=== PATIENT | female | born 1965 | race Caucasian/White ===

== ENCOUNTER → 2017-02-23 | Outpatient (CLI) | payer BC ==
[~2017-02-23] MED LIST: AMOX875T PO; BCPILLS PO; IUD'IUD
== END | disposition home or self-care (01) ==
LOC: C.PAPS 14:49
PROVIDERS: ATTEND Obstetrics & Gynecology
DX: Z01.419 Encounter for gynecological examination (general) (routine) without abnormal findings (principal)

== ENCOUNTER → 2017-04-12 | Outpatient (CLI) | payer BC ==
--- NOTE | 2017-04-12 14:45 | MAMMOGRAPHY REPORT ---
BILATERAL DIGITAL DIAGNOSTIC MAMMOGRAM TOMOSYNTHESIS WITH CAD AND TARGETED RIGHT ULTRASOUND: 04/12/20 CLINICAL HISTORY: 52-year-old woman with a history of prior benign right breast biopsy presents for follow-up of bilateral asymmetries. TECHNIQUE: Bilateral CC and MLO 2-D digital and tomosynthesis images were obtained. Current study was also evaluated with a Computer Aided Detection (CAD) system. COMPARISON: Comparison is made to exams dated: 10/12/2016 ultrasound, 10/12/2016 mammogram, 016 mammogram, 09/24/2015 mammogram, 08/21/2014 mammogram, and 01/30/2014 mammogram - [facility]. BREAST COMPOSITION: The tissue of both breasts is heterogeneously dense, which may obscure small ma sses. FINDINGS: There are stable asymmetries in the superior posterior right breast on the MLO view, and in the medial, middle one third of the left breast on the CC view. Other fluctuating nodularity ammy aterally. There is no evidence of a suspicious spiculated or irregular mass, focal area of architec tural distortion or suspicious clustered microcalcification. There is somewhat increased nodularity in the medial right breast on the CC view, for which additional evaluation with ultrasound was perf ormed. Targeted ultrasound was performed in the medial right breast. There are scattered benign anechoic c ysts and probable cyst clusters and focal areas of fibrocystic change. In particular, in the right 2:00 breast, 2 cm from the nipple, there is a 4.6 x 3.6 x 5.9 mm hypoechoic solid versus cystic mass with probable associated biopsy marker. This appears similar to a prior ultrasound at which time t his lesion was labeled right 1:00 breast, 2 cm from the nipple, and measured 5.3 x 2.7 x 5.9 mm. In the 1:00 periareolar right breast, there is another hypoechoic probable cyst measuring 4.1 x 3.4 x 3.9 mm. A lobulated anechoic benign simple cyst is identified in the 11:00 periareolar right breast measuring 8.6 x 3.8 x 6.2 mm. A probable cyst cluster in the 10:00 right breast, 2 cm from the nip ple measures 7.4 x 4.2 x 12.4 mm. Another probable cyst cluster in the 3:00 right breast, 1 cm from the nipple measures 5.3 x 2.7 x 6.8 mm. A larger probable cyst cluster in the 3:00 periareolar rig ht breast measures 10.1 x 3.2 x 6.2 mm. Other scattered probable cysts and cyst clusters are seen t hroughout their lower inner quadrant of the right breast. Overall, these findings are most compatib le with benign fibrocystic changes. IMPRESSION: ACR BI-RADS CATEGORY 2: BENIGN, TARGETED ULTRASOUND ACR BI-RADS CATEGORY 2: BENIGN There is fluctuating nodularity in the breasts, with numerous cysts and cyst clusters seen within th e right breast on ultrasound. These findings are most compatible with benign fibrocystic changes. There is no mammographic or targeted sonographic evidence of malignancy. Return to annual mammogram screening schedule is recommended. The patient has been verbally notified of the results. Approximately 10% of breast cancers are not detected with mammography. A negative mammographic repor t should not delay biopsy if a clinically suggestive mass is present. Fatou Velez M.D. ay/:04/12/2017 12:35:23 [employer]: Lorena CONTRERAS(Jorge Alberto)(M), [facility] letter sent: Normal 1/2 BI-RADS Code: ACR BI-RADS Category 2: Benign Ultrasound BI-RADS: ACR BI-RADS Category 2: Benign
== END | disposition home or self-care (01) ==
LOC: C.MAMM 10:46
PROVIDERS: ATTEND Obstetrics & Gynecology
DX: N64.89 Other specified disorders of breast (principal)

== ENCOUNTER 2017-08-20 19:58 | Emergency (ER) | payer BC ==
[~2017-08-20] VITALS: Ht 162.6 cm; Wt 65.5 kg
[~2017-08-20 19:58] MED LIST changes: -AMOX875T PO; -BCPILLS PO
[2017-08-20 20:01] VITALS: TEMP 37; Ht 162.6 cm; Wt 65.5 kg
[2017-08-20] MEDS ORDERED: BCPILLS PO (20:11)
[2017-08-20] MEDS ORDERED: LIDOCAINE/EPINEPHRINE 1% 20 ML VIAL INFIL ONE (20:15)
[2017-08-20] MEDS ORDERED: AMOXICIL/CLAVU 875MG HOME PACK PO ONE (20:15)
[2017-08-20] MEDS ORDERED: AMOX875T PO (20:53)
--- NOTE | 2017-08-20 20:55 | EMERGENCY ROOM VISIT NOTE ---
ED Visit Note First contact with patient: 20:04 CHIEF COMPLAINT: Dog bites HISTORY OF PRESENT ILLNESS: This 52-year-old female patient presents to the emergency department, ambulatory, approximally 20 minutes after receiving multiple dog bites on bilateral arms. The patient states someone was knocking at their door, and their dog was jumping at the door. She was trying to get the dog down and away from the door, when the dog began biting her. The patient states she has received multiple superficial to moderately deep bite wounds on the bilateral arms and wrist. The worst wounds are on the right wrist. The bleeding has stopped. Denies weakness or numbness of the hand or fingers. The patient rates the pain as throbbing and 6/10. The patient denies any other injuries. The patient's Tetanus shot is up to date. The dog's vaccinations, including rabies, are all up-to-date. REVIEW OF SYSTEMS: A 6 system review of systems was completed with positives and pertinent negatives listed in the HPI. ALLERGIES: Sulfa MEDICATIONS: Oral control PMH: None SOCIAL HISTORY: The patient lives locally with family. She denies drug, tobacco use. The patient admits to occasional alcohol use. PHYSICAL EXAM: Vital Signs: Reviewed Nurse's notes, vital signs stable. GENERAL : This is a 52-year-old female, in no acute distress, well-developed, well- nourished. SKIN: There are several very superficial lacerations on the right and left forearms. These lacerations range in length from 0.5 cm to approximately 3 cm. There are 2 lacerations into the subcutaneous tissue. These are on the right hand and wrist. There is a laceration on the anterior wrist which is approximately 1 cm in length, and a laceration on the posterior hand, just proximal to the thumb which is also approximately 1 cm in length. The edges of the deeper lacerations do gape apart with traction. There is no foreign material in the wound and it looks clean. There is very minimal bleeding. No deep structures such as tendons, bones, or significant blood vessels are seen in the base of the wound. Normal strength and movement of the fingers and wrist. Capillary refill less than 2 seconds. Normal sensation to light and sharp touch. EMERGENCY DEPARTMENT COURSE: I examined the patient. Verbal consent was obtained to perform the procedure. Using sterile technique the wound was cleansed with Betadine. The area was sterilely draped. 1 ml of 1% buffered lidocaine with epinephrine was used to anesthetize the laceration on the hand and 1 ml was used to anesthetize the laceration on the wrist. Once the patient was anesthetized, the wounds were copiously irrigated under pressure with sterile saline. The wounds were explored and was as described above. The lacerations was repaired using 2 simple interrupted 5-0 nylon sutures each, with the wound edges being well approximated. The patient tolerated the procedure well. Hemostasis was achieved. The area was cleaned with sterile saline and dressed with bacitracin ointment and bandage. All other superficial lacerations were dressed with bacitracin and a bandage. Two wounds were dressed with steri-strips. The patient was given a home pack of Augmentin. The patient was discharged home in good condition. DIFFERENTIAL DIAGNOSIS: Lacerations, dog bite, rabies, DIAGNOSIS: Dog bites with subsequent lacerations DISCHARGE INSTRUCTIONS & TREATMENT: You have received 4 sutures on your right wrist. These sutures are NOT dissolvable and WILL need to be removed by a health care provider in 8-10 days. You can return to the Emergency Department or contact your Primary Care Provider to have the sutures removed. You did receive 2 Steri-Strips on other lacerations. These will fall off on their own. Please avoid getting them went as best as possible. When the Steri- Strips fall off, continue to care for the wound as your caring for the other wounds. Proper wound care is essential for adequate wound healing and infection prevention. You can shower and clean the wound with soap and water. Do not scour over the wound, pat dry with a towel. Do not submerse the wound (i.e. bathe or dish wash) until the sutures have been removed. You can use an antibiotic ointment with a dressing over the wound for the next 3-4 days. After this time you may leave the wound dry and open to the air. If crust develops over the wound you can use a Q-tip to apply a 1:1 peroxide:water solution to clean the wound. You were prescribed Augmentin to be taken twice daily for 10 days. This is an antibiotic. All antibiotics have the potential to cause diarrhea. Stop this medication and contact a medical provider if you were to develop any significant adverse side effects including: wheezing, shortness of breath, passing out, vomiting, or a diffuse rash. Always take antibiotics as directed and COMPLETE the ENTIRE course regardless of the improvement of your symptoms. Look for signs of infection of the wound including: increased pain, swelling, foul discharge, streaking, or increased temperature. If any of these are noticed you should return to the Emergency Department for further assessment and treatment. As with any laceration you may have received nerve damage to the surrounding tissues. This damage may or may not be permanent. You should keep the area covered with sunscreen for the first 6 months to 1 year when at risk for exposure to help minimize scarring. You can also use scar reducing creams or Vitamin E oil to help minimize scarring. For pain control, you can use the following vlar-jxl-[id number] medicines (if >12 yo): - Regular strength (325mg/tab) Tylenol (acetaminophen) 2 tabs every 4-6 hours as needed. Do not exceed 9 tablets in a 24 hour period. Avoid taking more than 3 grams (3000 mg) of Tylenol per day. This includes any other sources of acetaminophen you may take on a regular basis. - Regular strength (200 mg/tab) Advil (ibuprofen) 1-2 tabs every 4-6 hours as needed. Do not exceed a dose of 2400 mg per day. Return to the emergency department if your symptoms worsen despite treatment course outlined above. Current/Historical Medications Scheduled Amoxicillin & Pot Clavulanate (Augmentin 875-125 mg), 1 TAB PO BID Control Pills ( Control Pills), 1 TAB PO DAILY Allergies Coded Allergies: Sulfa Drugs (Verified Allergy, Mild, rash, 10/29/16) Vital Signs Date Time Temp Pulse Resp B/P (MAP) Pulse Ox O2 Delivery O2 Flow Rate FiO2 08/20/17 21:01 75 16 127/71 98 08/20/17 20:01 37.0 92 18 144/88 97 Room Air Departure Information Impression Primary Impression: Dog bite Dispostion Home / Self-Care Condition GOOD Prescriptions Amoxicillin & Pot Clavulanate (Augmentin 875-125 mg) 1 Tab Tab 1 TAB PO BID for 10 Days, #20 TAB Prov: Sunitha Pearson PA-C 08/20/17 Referrals Alex Dior M.D. ([facility]) (PCP) Patient Instructions ED Laceration Ext Sutr Stap Tape, [employer] Additional Instructions You have received 4 sutures on your right wrist. These sutures are NOT dissolvable and WILL need to be removed by a health care provider in 8-10 days. You can return to the Emergency Department or contact your Primary Care Provider to have the sutures removed. You did receive 2 Steri-Strips on other lacerations. These will fall off on their own. Please avoid getting them went as best as possible. When the Steri- Strips fall off, continue to care for the wound as your caring for the other wounds. Proper wound care is essential for adequate wound healing and infection prevention. You can shower and clean the wound with soap and water. Do not scour over the wound, pat dry with a towel. Do not submerse the wound (i.e. bathe or dish wash) until the sutures have been removed. You can use an antibiotic ointment with a dressing over the wound for the next 3-4 days. After this time you may leave the wound dry and open to the air. If crust develops over the wound you can use a Q-tip to apply a 1:1 peroxide:water solution to clean the wound. You were prescribed Augmentin to be taken twice daily for 10 days. This is an antibiotic. All antibiotics have the potential to cause diarrhea. Stop this medication and contact a medical provider if you were to develop any significant adverse side effects including: wheezing, shortness of breath, passing out, vomiting, or a diffuse rash. Always take antibiotics as directed and COMPLETE the ENTIRE course regardless of the improvement of your symptoms. Look for signs of infection of the wound including: increased pain, swelling, foul discharge, streaking, or increased temperature. If any of these are noticed you should return to the Emergency Department for further assessment and treatment. As with any laceration you may have received nerve damage to the surrounding tissues. This damage may or may not be permanent. You should keep the area covered with sunscreen for the first 6 months to 1 year when at risk for exposure to help minimize scarring. You can also use scar reducing creams or Vitamin E oil to help minimize scarring. For pain control, you can use the following livg-rui-phxnmdp medicines (if >12 yo): - Regular strength (325mg/tab) Tylenol (acetaminophen) 2 tabs every 4-6 hours as needed. Do not exceed 9 tablets in a 24 hour period. Avoid taking more than 3 grams (3000 mg) of Tylenol per day. This includes any other sources of acetaminophen you may take on a regular basis. - Regular strength (200 mg/tab) Advil (ibuprofen) 1-2 tabs every 4-6 hours as needed. Do not exceed a dose of 2400 mg per day. Return to the emergency department if your symptoms worsen despite treatment course outlined above. Problem Qualifiers Primary Impression: Dog bite Encounter type: initial encounter Qualified Codes: W54.0XXA - Bitten by dog , initial encounter
[2017-08-20 21:01] VITALS: BP 127/71; PULSE 75; O2SAT 98
== END 2017-08-20 21:01 | disposition home or self-care (01) ==
LOC: C.EDB 20:01 → C.EDD 21:01
DX: S41.151A Open bite of right upper arm, initial encounter (principal); S41.152A Open bite of left upper arm, initial encounter; W54.0XXA Bitten by dog, initial encounter; Z79.3 Long term (current) use of hormonal contraceptives

== ENCOUNTER 2017-08-28 12:16 | Emergency (ER) | payer BC ==
[~2017-08-28] VITALS: Ht 163.8 cm; Wt 65.1 kg
[~2017-08-28 12:16] MED LIST changes: +AMOX875T PO; +BCPILLS PO; -IUD'IUD
[2017-08-28 12:18] VITALS: BP 124/84; PULSE 75; TEMP 37.2; O2SAT 97; Ht 163.8 cm; Wt 65.1 kg
--- NOTE | 2017-08-28 12:30 | EMERGENCY ROOM VISIT NOTE ---
ED Visit Note First contact with patient: 12:23 CHIEF COMPLAINT: Suture removal This patient returns to the ED today for removal of sutures that were placed 8 days ago. There has been no swelling, redness, or drainage from the wound. The patient feels like the laceration is healing well. REVIEW OF SYSTEMS: Head: No headache, injury or neck pain. Skin: No rash, new lesions, or masses. General: No fever or chills, fatigue, loss of appetite , or significant recent weight gain or loss. PMH: The patient is healthy; there is no significant medical or surgical history. SOCIAL HISTORY: Patient lives at home. PHYSICAL EXAM: Vital Signs: Reviewed Nurse's notes. There is a sutured wound on the right wrist and dorsal thumb with no signs of infection. There is no erythema, swelling, or tenderness. EMERGENCY DEPARTMENT COURSE: The sutures were removed without any difficulty and there was no separation of the wound edges. 4 sutures were removed. Current/Historical Medications Scheduled Amoxicillin & Pot Clavulanate (Augmentin 875-125 mg), 1 TAB PO BID Control Pills ( Control Pills), 1 TAB PO DAILY Allergies Coded Allergies: Sulfa Drugs (Verified Allergy, Mild, rash, 10/29/16) Vital Signs Date Time Temp Pulse Resp B/P (MAP) Pulse Ox O2 Delivery O2 Flow Rate FiO2 08/28/17 12:18 37.2 75 18 124/84 97 Room Air Departure Information Impression Primary Impression: Encounter for removal of sutures Dispostion Home / Self-Care Condition GOOD Referrals Alex Dior M.D.([facility]) (PCP) Patient Instructions My [facility] Additional Instructions DISCHARGE INSTRUCTIONS AND TREATMENT: Wash any remaining crusts off of the wound today and resume your normal activities. You may discontinue the Augmentin at the ten-day kenzie.
== END 2017-08-28 12:35 | disposition home or self-care (01) ==
LOC: C.EDB 12:17 → C.EDD 12:35
DX: S61.511D Laceration without foreign body of right wrist, subsequent encounter (principal); X58.XXXD Exposure to other specified factors, subsequent encounter